=== PATIENT | female | born 1975 | race Caucasian/White ===

== ENCOUNTER 2021-06-29 15:31 | Emergency (ER) | payer MEDICAID ==
[~2021-06-29] VITALS: Ht 175.3 cm; Wt 83.9 kg
[2021-06-29 15:35] VITALS: BP 123/74
[2021-06-29] MEDS ORDERED: LIDOCAINE 2% 1000 MG/50 ML VIAL INJ ONE (15:35)
--- NOTE | 2021-06-29 15:39 | NUR ---
pATIENT WHEELCHAIR ASSISTED TO BED 10
--- NOTE | 2021-06-29 15:45 | NUR ---
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 Patient A&Ox4, ambulatory, presents with 2cm laceration under R breast; reports 5/10, throbbing/intermittent, non-radiating pain. Last tetanus 7 years ago. Patient reports falling on both knees with pain to L knee. +CMS +ROM +pedal pulses, -LOC. Denies any meds prior to arrival. Bleeding controlled prior to arrival. PMH/Meds: DM, metformin NKA Sx: Appendectomy, hysterectomy, , tummy tucks
--- NOTE | 2021-06-29 16:03 | NUR ---
RAD AT BEDSIDE
--- NOTE | 2021-06-29 16:12 | NUR ---
Ray kinney at bedside for suture procedure
[2021-06-29] MEDS ORDERED: BACI1PAC6 TP (16:39)
[2021-06-29] MEDS ORDERED: BACITRACIN OINT 500 UNITS/GM PKT TP ONE ×2 (16:46→16:50)
[2021-06-29 16:57] VITALS: BP_DIAS 74
--- NOTE | 2021-06-29 16:57 | NUR ---
Patient discharged with v/s stable. Written and verbal after care instructions given and explained. Patient alert, oriented and verbalized understanding of instructions. Ambulatory with steady gait. All questions addressed prior to discharge. ID band removed. Patient advised to follow up with PMD. Rx of Bacitracin Zinc given. Patient educated on indication of medication including possible reaction and side effects. Opportunity to ask questions provided and answered.
== END 2021-06-29 16:57 | disposition home or self-care (01) ==
LOC: MED 15:31
DX: S21.111A Laceration without foreign body of right front wall of thorax without penetration into thoracic cavity, initial encounter (principal); S31.119A Laceration without foreign body of abdominal wall, unspecified quadrant without penetration into peritoneal cavity, initial encounter; W18.39XA Other fall on same level, initial encounter; Y93.89 Activity, other specified; Y92.89 Other specified places as the place of occurrence of the external cause; Y99.8 Other external cause status
CPT/HCPCS: 12002; 71045; 90471; 90715; 99284; J2001; Q0092

== ENCOUNTER 2021-07-01 17:51 | Emergency (ER) | payer MEDICAID ==
[~2021-07-01] VITALS: Ht 175.3 cm; Wt 83.9 kg
[~2021-07-01 17:51] MED LIST: BACI1PAC6 TP
--- NOTE | 2021-07-01 18:23 | NUR ---
Note patrice in ED - 07/01/21 at 1907 by [facility] [place] CALLED PATIENT IN LOBBY AND OUTSIDE. NO RESPONSE.
--- NOTE | 2021-07-01 18:39 | NUR ---
Note patrice in ED - 07/01/21 at 1907 by [facility] AND OUTSIDE. NO RESPONSE
[2021-07-01 19:00] VITALS: BP 141/88
--- NOTE | 2021-07-01 19:30 | NUR ---
d/c with VSS. d/c education given. opportunity to ask questions given and answered. educated pt on poss infection s/sx that would deem them to come back to ER for RME. no rx provided.
== END 2021-07-01 19:30 | disposition home or self-care (01) ==
LOC: MED 17:51
DX: S31.119D Laceration without foreign body of abdominal wall, unspecified quadrant without penetration into peritoneal cavity, subsequent encounter (principal); E11.9 Type 2 diabetes mellitus without complications; Z79.899 Other long term (current) drug therapy; X58.XXXD Exposure to other specified factors, subsequent encounter
CPT/HCPCS: 99281

== ENCOUNTER 2021-07-08 14:39 | Emergency (ER) | payer MEDICAID ==
[~2021-07-08] VITALS: Ht 175.3 cm; Wt 83.9 kg
[2021-07-08 14:52] VITALS: BP 105/70
[2021-07-08 15:43] VITALS: BP 105/70
--- NOTE | 2021-07-08 15:43 | NUR ---
NO NURSING INTERVENTIONS IMPLEMENTED. Patient discharged with v/s stable. Written and verbal after care instructions given and explained. Patient alert, oriented and verbalized understanding of instructions. Ambulatory with steady gait. All questions addressed prior to discharge. ID band removed. Patient advised to follow up with PMD. Opportunity to ask questions provided and answered.
== END 2021-07-08 15:43 | disposition home or self-care (01) ==
LOC: MED 14:39
DX: S31.119D Laceration without foreign body of abdominal wall, unspecified quadrant without penetration into peritoneal cavity, subsequent encounter (principal); Z48.00 Encounter for change or removal of nonsurgical wound dressing; X58.XXXD Exposure to other specified factors, subsequent encounter
CPT/HCPCS: 99281